=== PATIENT | male | born 1990 | race Hispanic/Latino ===

== ENCOUNTER 2020-09-06 19:13 | Emergency (ER) | payer SELFPAY ==
[~2020-09-06] VITALS: Ht 170.2 cm; Wt 68.0 kg
[2020-09-06] MEDS ORDERED: [UNRECOGNIZED DRUG - REMARK] (19:56)
[2020-09-06 20:27] VITALS: BP 121/62
== END 2020-09-06 20:27 | disposition home or self-care (01) | DRG 605 ==
LOC: ED 19:13
PROC: 0HQFXZZ Repair Right Hand Skin, External Approach (ICD-10-PCS; principal; 2020-09-06)
DX: S61.210A Laceration without foreign body of right index finger without damage to nail, initial encounter (principal); W25.XXXA Contact with sharp glass, initial encounter; Y92.002 Bathroom of unspecified non-institutional (private) residence as the place of occurrence of the external cause